=== PATIENT | female | born 1970 | race Caucasian/White ===

== ENCOUNTER 2023-02-19 17:35 | Emergency (ER) | payer BC, SELFPAY ==
[2023-02-19] VITALS (21 sets, daily range): BP systolic 135–168; BP diastolic 52–112; PULSE 69–95; RESP 16–20; TEMP 36.7; O2SAT 18–99; BMI 45.4
--- NOTE | 2023-02-19 18:26 | CRLHL7_ITS ---
For Patients: As a result of the Century Cures Act, medical imaging exams and procedure reports are released immediately into your electronic medical record. You may view this report before your referring provider. If you have questions, please contact your health care provider. INDICATION: Chest pain. TECHNIQUE: Chest 1 views. COMPARISON: None. FINDINGS: Decreased signal to noise ratio secondary to patient body habitus. Lungs: Normal lung volume. No consolidation. The tracheobronchial tree and hilar structures are unremarkable. Pleura: No pleural effusion or pneumothorax. Heart and Mediastinum: Normal heart size. The great vessels of the thorax are unremarkable. Bones: No acute displaced osseous process. IMPRESSION: No consolidation. Dictated by Keyur Suero MD @ 02/19/2023 7:35:57 PM (Electronically Signed)
[2023-02-19] MEDS: 0.9 % SODIUM CHLORIDE 1000 ml 1,000 ML IV (18:50)
[2023-02-19 19:10] LABS: Basophils Absolute Auto 0.04 K/uL (0.00-0.30); Basophils Percent Auto 0.4 % (0.0-3.0); Eosinophils Absolute Auto 0.17 K/uL (0.00-0.50); Eosinophils Percent Auto 1.7 % (0.0-7.0); Hematocrit 44.1 % (33.0-51.0); Hemoglobin* 14.3 gm/dL (12.0-16.0); Immature Granulocytes Abs Auto 0.01 K/uL (0.00-0.30); Immature Granulocytes Pct Auto 0.1 %; Lymphocytes Percent Auto 18.2 % (20-44); Mean Corpuscular HGB Conc 32 gm/dL (32-36); Mean Corpuscular Hemoglobin 28 pg (26-34); Mean Corpuscular Volume 87 fL (80-100); Neutrophils Percent Auto 74.6 % (42.0-72.0); Platelet Count* 355 K/uL (140-440); Red Blood Count 5.08 m/uL (4.00-5.20); White Blood Count* 10.11 K/uL (4.50-11.00)
[2023-02-19 19:19] LABS: Chloride* 104 mmol/L (96-114); Sodium* 138 mmol/L (135-149)
[2023-02-19 19:20] LABS: Potassium* 4.3 mmol/L (3.6-5.1)
[2023-02-19 19:21] LABS: Slide Review Reflex No
[2023-02-19 19:22] LABS: Creatinine* 0.7 mg/dL (0.5-1.5); Est. Creatinine Clearance* 73.51; Estimated Glomerular Filt Rate 103 ml/min
[2023-02-19 19:23] LABS: Blood Urea Nitrogen* 18 mg/dL (7-30); Calcium* 9.5 mg/dL (8.4-10.6); Carbon Dioxide* 28 mmol/L (20-32); Glucose* 128 mg/dL (60-115); Magnesium* 1.9 mg/dL (1.5-2.6)
[2023-02-19 19:25] LABS: C Reactive Protein* 2.2 mg/dL (0.5-1.0); D Dimer Quantitative* 0.57 ug/ml (0.00-0.50)
[2023-02-19 19:28] LABS: Ethanol* < 0.01 % (0.01-0.03)
[2023-02-19] MEDS: LORazepam 2 MG/ML inj 0.5 MG IVP (19:29)
[2023-02-19 19:33] LABS: NT Pro B Type NatriureticPept* 180 pg/mL
[2023-02-19 19:35] LABS: Troponin I* < 0.01 ng/mL (0.01-0.04)
--- NOTE | 2023-02-19 20:00 | ED_ITS ---
HPI - General Adult General Chief complaint: Chest Pain Stated complaint: Chest Pain Dizzy Short of Breath Time Seen by Provider: 02/19/23 17:55 History of Present Illness HPI narrative: 52-year-old woman presenting to the emergency department accompanied by her with concern of dizziness but in particular chest pain. Dizziness is alternately described sometimes as lightheadedness. She describes later some ringing in her ears. Has had ringing in her right ear or last 3 months and has been evaluated by ENT and planning follow-up. Has been noted to have a left stapes fracture per her report. She has been having some trouble though bumping into zuleta as the symptoms have been ongoing over the last 3 days. She has not had a fever. Does not have a headache. No visual changes really. Three 4 days ago started vomiting but now controlling with Zofran so no longer vomiting; still nauseated. Intermittently will get a burning sensation in her mid chest it seems to radiate up into both sides of her neck and her jaw. This can last 20-30 minutes. Not necessarily short of breath outside of that; discomfort is not pleuritic. She describes sometimes her heart fluttering as well. During exam I see some PVCs on monitor; asymptomatic in this regard at the with those. No abdominal pain. Has started taking clindamycin; antibiotic she had remaining from prior prescription. Much later she says, do think that this could be my shunt? I had similar symptoms to this when it gets infected. Apparently was obstructed and tangled somewhere in the abdomen at 1 point. Care has been at [facility]. Mentions a number times that had felt similar with a lupus flare in the past which was ultimately treated she said by primary care with Solu-Medrol and vancomycin for infection she said that started in her sinuses and went to her chest. In a bit of a difficult interview, later clarifying dizziness further it does seem to subside at rest and exacerbated then with any movements. Related Data Home Medications Medication Instructions Recorded Confirmed albuterol sulfate 2.5 mg/3 mL 1 mg inhalation Q4H PRN wheezing 02/19/23 02/19/23 (0.083 %) solution for nebulization cyclobenzaprine 10 mg tablet 10 mg PO 3XD PRN muscle spasm 02/19/23 02/19/23 glucagon 0.5 mg/0.1 mL 0.5 mg subcut PRN 02/19/23 02/19/23 subcutaneous auto-injector (Gvoke HypoPen 2-Pack) hydroxychloroquine 200 mg tablet 200 mg PO BID 02/19/23 02/19/23 insulin detemir U-100 100 unit/mL 10 unit subcut BID 02/19/23 02/19/23 subcutaneous solution (Levemir U-100 Insulin) levalbuterol tartrate 45 1 - 2 puff inhalation Q4H PRN 02/19/23 02/19/23 mcg/actuation aerosol inhaler wheezing lidocaine 5 % topical patch 1 patch topical 02/19/23 lisinopril 10 mg tablet 10 mg PO DAILY 02/19/23 02/19/23 lorazepam 1 mg tablet 1 mg PO 3XD PRN 02/19/23 02/19/23 metformin 1,000 mg tablet 1,000 mg PO BID 02/19/23 02/19/23 metoprolol succinate 50 mg 50 mg PO DAILY 02/19/23 02/19/23 tablet,extended release 24 hr ondansetron 4 mg disintegrating 8 mg PO Q8H PRN nausea/vomiting 02/19/23 02/19/23 tablet oxycodone 15 mg tablet 15 mg PO Q6H PRN pain 02/19/23 02/19/23 oxycodone myristate 27 mg capsule 27 mg PO 3XD 02/19/23 02/19/23 sprinkle extended release 12hr(DON'T CRUSH) (Xtampza ER) rosuvastatin 10 mg tablet 10 mg PO QPM 02/19/23 02/19/23 Previous Rx's Medication Instructions Recorded diazepam 5 mg tablet (Valium) 5 mg PO TID PRN dizziness or 02/19/23 vertigo #9 tabs Allergies Allergy/AdvReac Type Severity Reaction Status Date / Time Penicillins Allergy Anaphylaxis Verified 02/19/23 17:49 aspirin AdvReac Verified 02/19/23 17:49 Review of Systems 2 Status of ROS: Reports: 6 or more systems reviewed and unremarkable except as noted in History and below Exam Narrative: Exam Narrative: Appears anxious. Tremulous. Brow is furrowed in concern. Cranial nerves 2-12 look to be intact. Pupils are equal and briskly reactive. Head is atraumatic from any new injury. Neck is supple. Nystagmus with what appears to be left beating almost circular. Persistently dizzy with head movements particularly so to the left or looking to the left. I do attempt head impulse testing which she does tend to resist movement with active tension in her neck. Bilaterally though appears to be negative. Cover uncover results and no deviation. Left TM appears to be possibly perforated centrally. Noninflamed. Right TM is unremarkable. No focal weakness. At intact [id number]. Full strength throughout. No facial swelling erythema or tenderness. Oropharynx unremarkable. Lungs are clear. Heart with elevated rate in a regular rhythm though do see some PVCs intermittently on monitor. Initially when I mention t hese do not appear to be symptomatic though when Lashonda is watching further does report discomfort/fluttering to nurse's associated with PVC that she observes. Strong and equal radial pulses. Does have intact/ accurate [id number]. Observed to Ambulate unsteadily Const: Vital Signs, click to edit/add: Vital Signs - 24 hr 02/19/23 17:41 02/19/23 18:49 02/19/23 19:00 Temperature 98.0 F Pulse Rate 81 86 Pulse Rate [Pulse Oximeter] 95 Pulse Rate [orthos tatic lying Pulse Oximeter] Pulse Rate [orthos tatic sitting] Pulse Rate [orthos tatic standing] Respiratory Rate 20 Blood Pressure Blood Pressure [Ri ght Upper Arm] 159/112 H Blood Pressure [or thostatic lying Le ft Arm] Blood Pressure [or thostatic sitting] Blood Pressure [or thostatic standing ] Pulse Oximetry 95 97 Oxygen Delivery Me thod Room Air 02/19/23 19:02 02/19/23 19:15 02/19/23 18:26 Temperature Pulse Rate 86 80 Pulse Rate [Pulse Oximeter] Pulse Rate [orthos tatic lying Pulse Oximeter] 81 Pulse Rate [orthos tatic sitting] 79 Pulse Rate [orthos tatic standing] 82 Respiratory Rate Blood Pressure 137/52 L Blood Pressure [Ri ght Upper Arm] Blood Pressure [or thostatic lying Le ft Arm] 156/73 H Blood Pressure [or thostatic sitting] 168/82 H Blood Pressure [or thostatic standing ] 161/82 H Pulse Oximetry 97 98 Oxygen Delivery Me thod 02/19/23 19:29 02/19/23 19:30 02/19/23 19:31 Temperature Pulse Rate 82 79 79 Pulse Rate [Pulse Oximeter] Pulse Rate [orthos tatic lying Pulse Oximeter] Pulse Rate [orthos tatic sitting] Pulse Rate [orthos tatic standing] Respiratory Rate Blood Pressure 156/73 H 168/82 H Blood Pressure [Ri ght Upper Arm] Blood Pressure [or thostatic lying Le ft Arm] Blood Pressure [or thostatic sitting] Blood Pressure [or thostatic standing ] Pulse Oximetry 98 97 98 Oxygen Delivery Me thod 02/19/23 19:34 02/19/23 19:45 02/19/23 20:05 Temperature Pulse Rate 89 76 78 Pulse Rate [Pulse Oximeter] Pulse Rate [orthos tatic lying Pulse Oximeter] Pulse Rate [orthos tatic sitting] Pulse Rate [orthos tatic standing] Respiratory Rate Blood Pressure 161/82 H Blood Pressure [Ri ght Upper Arm] Blood Pressure [or thostatic lying Le ft Arm] Blood Pressure [or thostatic sitting] Blood Pressure [or thostatic standing ] Pulse Oximetry 95 96 97 Oxygen Delivery Wy thod 02/19/23 20:07 02/19/23 20:15 02/19/23 21:17 Temperature Pulse Rate 69 76 Pulse Rate [Pulse Oximeter] 78 Pulse Rate [orthos tatic lying Pulse Oximeter] Pulse Rate [orthos tatic sitting] Pulse Rate [orthos tatic standing] Respiratory Rate 16 Blood Pressure 138/80 Blood Pressure [Ri ght Upper Arm] 147/75 H Blood Pressure [or thostatic lying Le ft Arm] Blood Pressure [or thostatic sitting] Blood Pressure [or thostatic standing ] Pulse Oximetry 97 97 98 Oxygen Delivery Wy thod Room Air 02/19/23 21:35 02/19/23 21:35 02/19/23 21:36 Temperature Pulse Rate 72 74 Pulse Rate [Pulse Oximeter] 78 Pulse Rate [orthos tatic lying Pulse Oximeter] Pulse Rate [orthos tatic sitting] Pulse Rate [orthos tatic standing] Respiratory Rate 16 Blood Pressure 150/68 H Blood Pressure [Ri ght Upper Arm] 150/68 H Blood Pressure [or thostatic lying Le ft Arm] Blood Pressure [or thostatic sitting] Blood Pressure [or thostatic standing ] Pulse Oximetry 18 L 98 99 Oxygen Delivery Me thod Room Air 02/19/23 21:45 02/19/23 22:00 02/19/23 22:02 Temperature Pulse Rate 75 75 70 Pulse Rate [Pulse Oximeter] Pulse Rate [orthos tatic lying Pulse Oximeter] Pulse Rate [orthos tatic sitting] Pulse Rate [orthos tatic standing] Respiratory Rate Blood Pressure 135/65 Blood Pressure [Ri ght Upper Arm] Blood Pressure [or thostatic lying Le ft Arm] Blood Pressure [or thostatic sitting] Blood Pressure [or thostatic standing ] Pulse Oximetry 98 94 96 Oxygen Delivery Me thod 02/19/23 22:15 Temperature Pulse Rate 74 Pulse Rate [Pulse Oximeter] Pulse Rate [orthos tatic lying Pulse Oximeter] Pulse Rate [orthos tatic sitting] Pulse Rate [orthos tatic standing] Respiratory Rate Blood Pressure Blood Pressure [Ri ght Upper Arm] Blood Pressure [or thostatic lying Le ft Arm] Blood Pressure [or thostatic sitting] Blood Pressure [or thostatic standing ] Pulse Oximetry 95 Oxygen Delivery Me thod Documenting provider has reviewed patient's vital signs: yes Course Vital Signs Vital signs: Initial Vital Signs Temperature 98.0 F 02/19/23 17:41 Temperature Source Temporal Artery Scan 02/19/23 17:41 Pulse Rate 95 02/19/23 17:41 Respiratory Rate 20 02/19/23 17:41 Blood Pressure 159/112 H 02/19/23 17:41 Blood Pressure Mean 127 H 02/19/23 17:41 Blood Pressure Position Semi-Fowlers 02/19/23 17:41 Pulse Oximetry 95 02/19/23 17:41 Oxygen Delivery Method Room Air 02/19/23 17:41 Vital Signs Temperature 98.0 F 02/19/23 17:41 Pulse Rate 95 02/19/23 17:41 Respiratory Rate 20 02/19/23 17:41 Blood Pressure 159/112 H 02/19/23 17:41 Pulse Oximetry 95 02/19/23 17:41 Oxygen Delivery Method Room Air 02/19/23 17:41 Temperature 98.0 F 02/19/23 17:41 Pulse Rate 74 02/19/23 22:15 Respiratory Rate 16 02/19/23 21:35 Blood Pressure 135/65 02/19/23 22:02 Pulse Oximetry 95 02/19/23 22:15 Oxygen Delivery Method Room Air 02/19/23 21:35 Medical Decision Making MDM Narrative Medical decision making narrative: There are symptoms that might be cardiac. Central versus peripheral vertiginous symptoms are difficult to sort out with Ms. Sorenson. Doubt ischemic cardiac etiology but will check some labs in that regard. Chest x-ray to rule out pneumothorax, screening for vascular disruption, pneumonia. Screening D-dimer for potential indication of pulmonary embolus or vascular disruption. Will look for evidence of infection in particular with this history of shunt infection that they mention. And will be ordering a head CT is initial evaluation of shunt function. Chest x-ray by my read without pneumothorax or infiltrate and with normal cardiac silhouette Labs its air overall reassuring though with mildly elevated CRP. Head CT with normal appearing ventricles suggesting normal shunt function. No inflammatory changes. [employer]KLE [employer]ATCH [employer] shunt right side then noted by Radiology to be in place Given IV fluids and lorazepam did not affect symptoms very much. Did begin to complain of further nausea was given Zofran. Finally diagnosis by treatment of sorts, given 5 mg of diazepam IV. Essentially complete resolution of her symptoms at that point. I think this does suggest more of a peripheral vertigo. We discussed potential benefit dexamethasone, she decided to proceed with that. Given 10 mg. Might be helpful in further suppressing vertigo particularly if there is some postviral/inflammatory etiology. Had anticipated discussing this case with Neurology however given full resolution of symptoms now and that these symptoms 1st began about 3 days ago, am more reassured as well as recognizing limited intervention regardless at this point. She would like to have some Valium around if possible if the symptoms return she says. There may also it be some esophageal reflux like symptoms that might benefit from a PPI. See patient discharge plan Medical Records Medical records reviewed: Yes I reviewed the patient's medical records Lab Data Lab results reviewed: Yes I reviewed the patient's lab results Labs: Lab Results 02/19/23 02/19/23 02/19/23 Range/Units 18:27 18:45 19:09 WBC 10.11 (4.50-11.00) K/uL RBC 5.08 (4.00-5.20) m/uL Hgb 14.3 (12.0-16.0) gm/dL Hct 44.1 (33.0-51.0) % MCV 87 (80-100) fL MCH 28 (26-34) pg MCHC 32 (32-36) gm/dL RDW Coeff of Baldev 14.0 (11.5-15.5) % Plt Count 355 (140-440) K/uL Neut % (Auto) 74.6 H (42.0-72.0) % Lymph % (Auto) 18.2 L (20-44) % [place] % (Auto) 5.0 (0.0-11.0) % Eos % (Auto) 1.7 (0.0-7.0) % Baso % (Auto) 0.4 (0.0-3.0) % Neut # (Auto) 7.50 H (1.7-7.0) K/uL Lymph # (Auto) 1.80 (0.90-2.90) K/uL [place] # (Auto) 0.50 (0.00-0.90) K/UL Eos # (Auto) 0.17 (0.00-0.50) K/uL Baso # (Auto) 0.04 (0.00-0.30) K/uL D-Dimer Quant (PE/DVT) 0.57 H (0.00-0.50) ug/ml Sodium 138 (135-149) mmol/L Potassium 4.3 (3.6-5.1) mmol/L Chloride 104 (96-114) mmol/L Carbon Dioxide 28 (20-32) mmol/L BUN 18 (7-30) mg/dL Creatinine 0.7 (0.5-1.5) mg/dL Estimated Creat Clear 73.51 Estimated GFR 103 ml/min Glucose 128 H (60-115) mg/dL Calcium 9.5 (8.4-10.6) mg/dL Magnesium 1.9 (1.5-2.6) mg/dL Troponin I < 0.01 L (0.01-0.04) ng/mL C-Reactive Protein 2.2 H (0.5-1.0) mg/dL NT-Pro-B Natriuret Pep 180 pg/mL Ethyl Alcohol < 0.01 L (0.01-0.03) % SARS-CoV-2 (PCR) Negative SARS-CoV-2 (Negative) Influenza Type A (PCR) Negative PCR FLU A (Negative) Influenza Type B (PCR) Negative PCR FLU B (Negative) POC Troponin I 0.00 L (0.01-0.04) ng/ml ECG Data Attestation: I personally reviewed and interpreted this ECG as follows: (Normal sinus rhythm rate of 93. No ischemic changes. (I do observe some PVCs on monitor)) Discharge Plan Discharge Clinical Impression: Anxiety, Premature ventricular contraction, Vertigo Patient Disposition: Home w/ Parent or Adult Condition: Improved Instructions: Vertigo (ED) Additional Instructions: Focus on hydration. Take care in transitions; moving slowly. Be seen for severe headache, intractable vomiting, fever, new and focal weakness, altered mental status/unusual somnolence. Please follow-up on Friday as scheduled with your primary care provider to discuss this further. Might try a medication like omeprazole 20 mg 1-2 times daily over the next 2 weeks for these symptoms you are experiencing in your chest. It is not clear to me that these were associated with premature ventricular contractions. Prescriptions: New diazepam [Valium] 5 mg tablet 5 mg PO TID PRN (Reason: dizziness or vertigo) Qty: 9 0RF No Action albuterol sulfate 2.5 mg /3 mL (0.083 %) solution for nebulization 1 mg inhalation Q4H PRN (Reason: wheezing) cyclobenzaprine 10 mg tablet 10 mg PO 3XD PRN (Reason: muscle spasm) Gvoke HypoPen 2-Pack 0.5 mg/0.1 mL auto-injector 0.5 mg subcut PRN hydroxychloroquine 200 mg tablet 200 mg PO BID Levemir U-100 Insulin 100 unit/mL solution 10 unit subcut BID lisinopril 10 mg tablet 10 mg PO DAILY lidocaine 5 % adhesive patch,medicated 1 patch topical lorazepam 1 mg tablet 1 mg PO 3XD PRN levalbuterol tartrate 45 mcg/actuation HFA aerosol inhaler 1 - 2 puff INHALATION Q4H PRN (Reason: wheezing) metoprolol succinate 50 mg tablet extended release 24 hr 50 mg PO DAILY oxycodone 15 mg tablet 15 mg PO Q6H PRN (Reason: pain) metformin 1,000 mg tablet 1,000 mg PO BID ondansetron 4 mg tablet,disintegrating 8 mg PO Q8H PRN (Reason: nausea/vomiting) rosuvastatin 10 mg tablet 10 mg PO QPM Xtampza ER 27 mg cap,sprinkl,ER12hr(DONT CRUSH) 27 mg PO 3XD Follow Up/Referrals: Provider,Not a Local [Referring] - Stand Alone Forms: [facility] Info Instructions
[2023-02-19 20:04] LABS: PCR FLU A Negative PCR FLU A (Negative); PCR FLU B Negative PCR FLU B (Negative)
[2023-02-19 20:05] LABS: SARS PCR* Negative SARS-CoV-2 (Negative)
--- NOTE | 2023-02-19 20:13 | CRLHL7_ITS ---
For Patients: As a result of the Cures Act, medical imaging exams and procedure reports are released immediately into your electronic medical record. You may view this report before your referring provider. If you have questions, please contact your health care provider. INDICATION: History of [employer]ETING DATA [employer]IST shunt. Discoordination/dizzy. COMPARISON: CT head 11/15/2014. TECHNIQUE: CT of the head without IV contrast. Coronal and sagittal reconstructions. FINDINGS: No intracranial hemorrhage, mass effect, or evidence of acute infarct. No midline shift. No abnormal extra-axial fluid collections. Mild bilateral frontal lobe atrophy again noted. Right frontal ventriculoperitoneal shunt catheter with tip in stable position in the body of the left lateral ventricle. Ventricular caliber is within normal limits. Orbits and extraocular muscles are symmetric. Mild mucosal thickening in the right maxillary and right sphenoid sinuses. The visualized paranasal sinuses and mastoid air cells are otherwise clear. No acute fracture identified. Soft tissues are unremarkable. IMPRESSION: 1. No acute intracranial findings. 2. Right frontal MARKETING DATA [employer]IST shunt in stable position. No hydrocephalus. Please note that all CT scans at this facility use dose modulation, iterative reconstruction, and/or weight-based dosing when appropriate to reduce radiation dose to as low as reasonably achievable. Dictated by Barb Jones MD @ 02/19/2023 9:17:08 PM (Electronically Signed)
[2023-02-19] MEDS: ONDANSETRON 2 MG/ML inj 4 MG IVP (21:29)
[2023-02-19] MEDS: diazePAM 5 MG/ML inj IV (21:49)
--- NOTE | 2023-02-19 22:10 | ED.NURSE ---
Late entry: Patient requested BG to be checked at 0. She states she hasnt eaten [id number] and is concerned. BG 92. Patient updated. MD at bedside, updating patient.
--- NOTE | 2023-02-19 22:13 | ED.NURSE ---
Reassessed patient. She reports dizziness has improved. Ambulated without difficulty. MD updated.
[2023-02-19] MEDS: dexAMETHasone 10 MG/ML inj IVP (22:56)
== END 2023-02-19 23:07 | disposition home or self-care (01) ==
PROVIDERS: Emergency Provider Family Medicine; PCP Family Medicine
DX: F41.9 Anxiety disorder, unspecified (principal); I49.3 Ventricular premature depolarization; R42 Dizziness and giddiness
CPT/HCPCS: 36415; 70450; 71045; 80048; 82077; 83735; 83880; 84484; 85025; 85379; 86140; 87631; 93005; 94761; 96374; 96375; 99284; 99285; J1100; J2060; J2405; J3360; J7030

== ENCOUNTER 2023-12-26 15:38 | Emergency (ER) | payer BC, SELFPAY ==
[2023-12-26 16:02] VITALS: BP 163/82; PULSE 70; RESP 16; TEMP 36.2; O2SAT 99; BMI 44.6
--- NOTE | 2023-12-26 16:42 | US_ITS ---
Patient: YVES PAUL Facility:?[facility] Patient ID:?[id number] Site Patient ID:?[id number]. Site :?[id number] Study:?US-Abdomen RUQ-12/26/2023 6:07:19 PM Ordering Physician:?RAIZA REZA Final Report: INDICATION: Right upper quadrant abdomen pain. TECHNIQUE: Ultrasound abdomen limited. Sonographic images of the right upper quadrant were obtained using clark-scale and color Doppler images. COMPARISON: None. FINDINGS: Limited exam due to body habitus and bowel gas. Liver: Normal in size with coarse echotexture. No suspicious masses. No intrahepatic biliary dilatation. Gallbladder: No stones or sludge. Normal wall thickness. No pericholecystic fluid. Positive sonographic mayes`s sign. Common bile duct: 4 mm. Pancreas: Not well visualized. Right kidney: Normal in size. Normal echotexture and cortex. No suspicious masses, stones, or hydronephrosis. Vasculature: Proximal abdominal aorta and IVC are unremarkable. IMPRESSION: Positive sonographic Mayes`s sign. Otherwise, no acute findings to explain right upper quadrant pain. Dictated by Ni Curry MD @ 12/26/2023 6:24:49 PM Signed by:?Ni Curry MD @12/26/2023 6:24:49 PM (Electronic Signature)
[2023-12-26 17:04] LABS: Basophils Percent Auto 0.3 % (0.0-3.0); Eosinophils Percent Auto 38.7 % (0.0-7.0); Hematocrit 42.3 % (33.0-51.0); Hemoglobin* 13.5 gm/dL (12.0-16.0); Immature Granulocytes Pct Auto 0.3 %; Lymphocytes Percent Auto 15.4 % (20-44); Mean Corpuscular HGB Conc 32 gm/dL (32-36); Mean Corpuscular Hemoglobin 28 pg (26-34); Mean Corpuscular Volume 88 fL (80-100); Monocytes Percent Auto 3.5 % (0.0-11.0); Neutrophils Percent Auto 41.8 % (42.0-72.0); Platelet Count* 318 K/uL (140-440); RDW Coefficient of Variation % 14.2 % (11.5-15.5); Red Blood Count 4.81 m/uL (4.00-5.20); White Blood Count* 14.86 K/uL (4.50-11.00)
[2023-12-26 17:21] LABS: Albumin* 4.3 g/dL (3.3-5.0); Chloride* 104 mmol/L (96-114); Sodium* 138 mmol/L (135-149)
[2023-12-26 17:22] LABS: Potassium* 4.1 mmol/L (3.6-5.1)
[2023-12-26 17:23] LABS: Slide Review Reflex No
[2023-12-26 17:24] LABS: Alanine Aminotransferase* 22 U/L (4-35); Alkaline Phosphatase* 148 U/L (40-150); Anion Gap 10 mEq/L (7-15); Aspartate Amino Transferase* 26 U/L (12-35); Bilirubin Total* 0.2 mg/dL (0.1-1.5); Blood Urea Nitrogen* 12 mg/dL (7-30); Carbon Dioxide* 24 mmol/L (20-32); Creatinine* 0.6 mg/dL (0.5-1.5); Est. Creatinine Clearance* 84.78; Estimated Glomerular Filt Rate 107 ml/min; Glucose* 91 mg/dL (60-115); Lipase* 25 U/L (23-300); Total Protein* 7.7 g/dL (6.0-8.3)
[2023-12-26 17:25] LABS: Calcium* 9.4 mg/dL (8.4-10.6)
[2023-12-26] MEDS: METOCLOPRAMIDE HCL 5 MG/ML INJ 10 MG IVP ×2 (17:26→20:10)
[2023-12-26] MEDS: MORPHINE 4 MG/ML INJ IVP ×2 (17:27→20:10)
[2023-12-26 17:46] VITALS: BP 153/93; PULSE 70; O2SAT 96
--- NOTE | 2023-12-26 18:34 | CT_ITS ---
Patient: YVES PAUL Facility:?[facility] Patient ID:?[id number] Site Patient ID:?[id number]. Site :?[id number] Study:?CT-Abdomen/Pelvis W/ 120CC ISOVUE 370-12/26/2023 7:14:46 PM Ordering Physician:LIZ Final Report: INDICATION: Right upper quadrant pain. TECHNIQUE: CT abdomen and pelvis acquired with 120 cc Isovue 370 IV contrast. COMPARISON: Ultrasound, December 26, 2019 4th.. FINDINGS: Lower chest: Scattered atelectasis. Tiny hiatal hernia. Liver: Unremarkable. Normal in size and attenuation. No suspicious masses. Gallbladder and bile ducts: Mildly distended gallbladder with cholelithiasis but without CT evidence of acute cholecystitis. Pancreas: Fatty atrophy. No mass or inflammation. Spleen: Unremarkable. Normal in size. No masses. Adrenal glands: Unremarkable. No nodules. Kidneys: Unremarkable. No suspicious masses, stones, or hydronephrosis. GI tract: Mild colonic stool burden. No bowel obstruction. No sign of mass or inflammation. Vasculature: Abdominal aorta is normal in caliber. Mesenteric arteries are patent. Lymph nodes: No lymphadenopathy. Peritoneum/Abdominal Wall: Mild nonspecific mesenteric inflammation adjacent to multiple loops of small bowel in the left abdomen (series 2/image 71, series 4/image 79). No free air or significant free fluid. Right lower quadrant intraperitoneal catheter. No drainable fluid collections. Pelvis: Tiny 2.6 centimeter left ovarian cyst. Hysterectomy. Bones: Unremarkable for age. IMPRESSION: Mildly distended gallbladder with cholelithiasis but without definite CT evidence of acute cholecystitis. Recommend correlation with localized physical examination and laboratory values. Subtle mesenteric inflammation adjacent to multiple loops of small bowel in the left abdomen. Nonspecific but can be seen in enteritis. Otherwise, no acute intra-abdominal/pelvic abnormality. Please note that all CT scans at this facility use dose modulation, iterative reconstruction, and/or weight-based dosing when appropriate to reduce radiation dose to as low as reasonably achievable. Dictated by Darrius Fitzgerald MD @ 12/26/2023 7:24:58 PM ----- ADDENDUM ----- Addendum: Associated small bowel wall thickening in the left abdomen (series 2/image 82, series 4/image 54) which would support focal enteritis. Dictated by Darrius Fitzgerald MD @ Dec 26 2023 7:28PM Signed by:?Darrius Fitzgerald MD @12/26/2023 7:24:58 PM (Electronic Signature)
--- NOTE | 2023-12-26 18:48 | ED_ITS ---
HPI - Abdominal Pain General Chief Complaint: Abdominal Pain Stated Complaint: R side/abdominal pain, discolored stool Time Seen by Provider: 12/26/23 16:33 Source: patient Mode of arrival: ambulatory Limitations: no limitations History of Present Illness HPI narrative: Patient is a 53-year-old female presenting to the emergency department for right upper quadrant abdominal pain. She states symptoms have been going on for last 2 weeks. The pain has been getting worse and she has noted she is having beige appearing stools. She saw her primary care provider today and had slightly elevated alk phos so was sent to emergency department for workup. Patient states she has not been eating or drinking much because of the pain. Denies ever having symptoms like this before. Has had no previous abdominal surgeries. Denies fevers, chills, chest pain, shortness of breath, weakness, numbness, diarrhea, constipation. States the pain is 10/10 in the right upper quadrant and it did not radiate. No other concerns noted. Related Data Home Medications Medication Instructions Recorded Confirmed albuterol sulfate 2.5 mg/3 mL 1 mg inhalation Q4H PRN wheezing 02/19/23 04/03/23 (0.083 %) solution for nebulization cyclobenzaprine 10 mg tablet 10 mg PO 3XD PRN muscle spasm 02/19/23 04/03/23 glucagon 0.5 mg/0.1 mL 0.5 mg subcut PRN 02/19/23 04/03/23 subcutaneous auto-injector (Gvoke HypoPen 2-Pack) hydroxychloroquine 200 mg tablet 200 mg PO BID 02/19/23 04/03/23 insulin detemir U-100 100 unit/mL 10 unit subcut BID 02/19/23 04/03/23 subcutaneous solution (Levemir U-100 Insulin) levalbuterol tartrate 45 1 - 2 puff inhalation Q4H PRN 02/19/23 04/03/23 mcg/actuation aerosol inhaler wheezing lidocaine 5 % topical patch 1 patch topical 02/19/23 04/03/23 lisinopril 10 mg tablet 10 mg PO DAILY 02/19/23 04/03/23 lorazepam 1 mg tablet 1 mg PO 3XD PRN 02/19/23 04/03/23 metformin 1,000 mg tablet 1,000 mg PO BID 02/19/23 04/03/23 metoprolol succinate 50 mg 50 mg PO DAILY 02/19/23 04/03/23 tablet,extended release 24 hr ondansetron 4 mg disintegrating 8 mg PO Q8H PRN nausea/vomiting 02/19/23 0 04/03/23 tablet oxycodone 15 mg tablet 15 mg PO Q6H PRN pain 02/19/23 04/03/23 oxycodone myristate 27 mg capsule 27 mg PO 3XD 02/19/23 04/03/23 sprinkle extended release 12hr(DON'T CRUSH) (Xtampza ER) rosuvastatin 10 mg tablet 10 mg PO QPM 02/19/23 04/03/23 Previous Rx's Medication Instructions Recorded diazepam 5 mg tablet (Valium) 5 mg PO TID PRN dizziness or 02/19/23 vertigo #9 tabs Allergies Allergy/AdvReac Type Severity Reaction Status Date / Time Penicillins Allergy Anaphylaxis Verified 12/26/23 16:06 aspirin AdvReac Verified 12/26/23 16:06 Review of Systems Status of ROS Reports: 10 or more systems reviewed and unremarkable except as noted in History and below [facility] Social History Smoking Status: Never smoker Do you use any of these nicotine containing products: None Second hand tobacco smoke exposure: No How often do you have a drink containing alcohol: never How often do you have six or more drinks on one occasion: Never AUDIT-C Alcohol total score: 0 Non-prescribed substance use: denies use service: No Exam Narrative: Exam Narrative: Const: Well-nourished, Well-developed, in moderate distress Eyes: PERRL, no conjunctival injection, and symmetrical lids HENT: Atraumatic external nose and ears. Moist mucous membranes. Neck: Symmetric, trachea midline, No thyromegaly. CVS: RRR, No murmurs or gallops. Peripheral pulses 2+ and equal in all extremities RESP: Unlabored respiratory effort. Clear to auscultation bilaterally. GI: Right upper quadrant tenderness, Nondistended, No rebound or guarding. MSK:Extremities w/o deformity, Normal Active ROM Skin: Warm, Dry. No rashes or lesions. Neuro: Normal Muscle tone, No focal neurological deficits. Psych: Awake, Alert, & Oriented x3. Appropriate mood and affect. Const: Vital Signs, click to edit/add: Vital Signs - 24 hr 12/26/23 16:02 12/26/23 17:46 Temperature 97.1 F L Pulse Rate [Right] 70 70 Respiratory Rate 16 Blood Pressure [Ri ght Upper Arm] 163/82 H 153/93 H Pulse Oximetry 99 96 Oxygen Delivery Me thod Room Air Room Air Course Vital Signs Vital signs: Initial Vital Signs Temperature 97.1 F L 12/26/23 16:02 Temperature Source Temporal Artery Scan 12/26/23 16:02 Pulse Rate 70 12/26/23 16:02 Pulse Rhythm Regular 12/26/23 16:02 Pulse Strength 3+ Normal 12/26/23 16:02 Respiratory Rate 16 12/26/23 16:02 Blood Pressure 163/82 H 12/26/23 16:02 Blood Pressure Mean 109 H 12/26/23 16:02 Blood Pressure Position Sitting 12/26/23 16:02 Pulse Oximetry 99 12/26/23 16:02 Oxygen Delivery Method Room Air 12/26/23 16:02 Vital Signs Temperature 97.1 F L 12/26/23 16:02 Pulse Rate 70 12/26/23 16:02 Respiratory Rate 16 12/26/23 16:02 Blood Pressure 163/82 H 12/26/23 16:02 Pulse Oximetry 99 12/26/23 16:02 Oxygen Delivery Method Room Air 12/26/23 16:02 Temperature 97.1 F L 12/26/23 16:02 Pulse Rate 70 12/26/23 17:46 Respiratory Rate 16 12/26/23 16:02 Blood Pressure 153/93 H 12/26/23 17:46 Pulse Oximetry 96 12/26/23 17:46 Oxygen Delivery Method Room Air 12/26/23 17:46 Medications Administered Medications: Discontinued Medications Generic Name Dose Route Start Last Admin Trade Name Freq PRN Reason Stop Dose Admin Metoclopramide HCl 10 mg 12/26/23 16:42 12/26/23 17:26 Metoclopramide Hcl 5 Mg/Ml Inj IVP 12/26/23 16:43 10 mg ONCE ONE Administration Morphine Sulfate 4 mg 12/26/23 16:42 12/26/23 17:27 Morphine 4 Mg/Ml Inj IVP 12/26/23 16:43 4 mg ONCE ONE Administration MDM - Abdominal Pain MDM Narrative Medical decision making narrative: Patient is a 53 year old female presenting to emergency department for right upper quadrant abdominal pain. Symptoms been going on for over a week now which she says they are getting worse. She was told to come in by primary care provider. This time there is concerned for his liver gallbladder disease along with possible pancreatitis versus gastroenteritis. Will order right upper quadrant ultrasound, CBC, CMP, lipase, urinalysis. Morphine given for pain. She is not nauseated at this time Right upper quadrant ultrasound returned showing no abnormalities. She did have a positive sonographic Mayes sign. Her white count slightly elevated at 14. She is not on any steroids right now for her lupus. CMP shows no concerning abnormalities. LFTs within normal limits. Lipase is within normal limits. Due to continued pain and no obvious gallbladder disease seen we will order CT scan of the abdomen and pelvis it shows a mildly distended gallbladder with cholelithiasis but no CT evidence of cholecystitis. There is also a small bowel wall thickening in the left abdomen which would support focal enteritis. I spoke to the on-call surgeon Dr. Rodriguez about this. She reviewed everything and states that the patient would be he a complicated surgical patient but is agreeable to have her be admitted to the hospital and re-evaluation in the [facility] for possible cholecystectomy. She states the other option is to have the patient discharged home in follow-up the primary care provider. I spoke to the patient extensively about this and explained to her that we cannot find any clear source of what is causing her symptoms but can admit her for repeat exam in the morning by the surgeon. The patient did not seem happy with these results and states the fall were going to do is treat her pain and nausea overnight she can do that at home and can follow-up with her primary care provider. We given high dose of morphine and a dose of Reglan before discharge. She states the medicine helped immediately with her symptoms. She will be discharged home. Lab Data Labs: Lab Results 12/26/23 Range/Units 16:56 WBC 14.86 H (4.50-11.00) K/uL RBC 4.81 (4.00-5.20) m/uL Hgb 13.5 (12.0-16.0) gm/dL Hct 42.3 (33.0-51.0) % MCV 88 (80-100) fL MCH 28 (26-34) pg MCHC 32 (32-36) gm/dL RDW Coeff of Baldev 14.2 (11.5-15.5) % Plt Count 318 (140-440) K/uL Neut % (Auto) 41.8 L (42.0-72.0) % Lymph % (Auto) 15.4 L (20-44) % [place] % (Auto) 3.5 (0.0-11.0) % Eos % (Auto) 38.7 H (0.0-7.0) % Baso % (Auto) 0.3 (0.0-3.0) % Neut # (Auto) 6.20 (1.7-7.0) K/uL Lymph # (Auto) 2.30 (0.90-2.90) K/uL [place] # (Auto) 0.50 (0.00-0.90) K/UL Eos # (Auto) 5.80 H (0.00-0.50) K/uL Baso # (Auto) 0.00 (0.00-0.30) K/uL Abs Immat Gran (auto) 0.00 (0.00-0.30) K/uL Imm/Tot Granulo (auto) 0.3 % Sodium 138 (135-149) mmol/L Potassium 4.1 (3.6-5.1) mmol/L Chloride 104 (96-114) mmol/L Carbon Dioxide 24 (20-32) mmol/L Anion Gap 10 (7-15) mEq/L BUN 12 (7-30) mg/dL Creatinine 0.6 (0.5-1.5) mg/dL Estimated Creat Clear 84.78 Estimated GFR 107 ml/min Glucose 91 (60-115) mg/dL Calcium 9.4 (8.4-10.6) mg/dL Total Bilirubin 0.2 (0.1-1.5) mg/dL AST 26 (12-35) U/L ALT 22 (4-35) U/L Alkaline Phosphatase 148 (40-150) U/L Total Protein 7.7 (6.0-8.3) g/dL Albumin 4.3 (3.3-5.0) g/dL Lipase 25 (23-300) U/L Imaging Data US - abdomen: Radiologist's impression: Positive sonographic Mayes`s sign. Otherwise, no acute findings to explain right upper quadrant pain. Dictated by Ni Curry MD @ 12/26/2023 6:24:49 PM Discharge Plan Discharge Clinical Impression: Abdominal pain Qualifiers: Abdominal location: right upper quadrant Qualified Code(s): R10.11 - Right upper quadrant pain Patient Disposition: Home, Self-Care Condition: Stable Instructions: Abdominal Pain (ED) Additional Instructions: Take your home medications states he previously have. Return to emergency department for new or worsening symptoms. Make she follow-up with the primary care provider about your lab work and imaging. Prescriptions: No Action albuterol sulfate 2.5 mg /3 mL (0.083 %) solution for nebulization 1 mg inhalation Q4H PRN (Reason: wheezing) cyclobenzaprine 10 mg tablet 10 mg PO 3XD PRN (Reason: muscle spasm) Gvoke HypoPen 2-Pack 0.5 mg/0.1 mL auto-injector 0.5 mg subcut PRN hydroxychloroquine 200 mg tablet 200 mg PO BID Levemir U-100 Insulin 100 unit/mL solution 10 unit subcut BID lisinopril 10 mg tablet 10 mg PO DAILY lidocaine 5 % adhesive patch,medicated 1 patch topical lorazepam 1 mg tablet 1 mg PO 3XD PRN levalbuterol tartrate 45 mcg/actuation HFA aerosol inhaler 1 - 2 puff INHALATION Q4H PRN (Reason: wheezing) metoprolol succinate 50 mg tablet extended release 24 hr 50 mg PO DAILY oxycodone 15 mg tablet 15 mg PO Q6H PRN (Reason: pain) metformin 1,000 mg tablet 1,000 mg PO BID ondansetron 4 mg tablet,disintegrating 8 mg PO Q8H PRN (Reason: nausea/vomiting) rosuvastatin 10 mg tablet 10 mg PO QPM Xtampza ER 27 mg cap,sprinkl,ER12hr(DONT CRUSH) 27 mg PO 3XD diazepam [Valium] 5 mg tablet 5 mg PO TID PRN (Reason: dizziness or vertigo) Qty: 9 0RF Follow Up/Referrals: Armando Cedeño MD [Primary Care Provider] - Stand Alone [facility]: [facility] Info Instructions
== END 2023-12-26 20:17 | disposition home or self-care (01) ==
PROVIDERS: Emergency Provider Student in an Organized Health Care Education/Training Program; PCP Family Medicine
DX: R10.11 Right upper quadrant pain (principal)
CPT/HCPCS: 36415; 74177; 76705; 80053; 81001; 83690; 85025; 96374; 96375; 96376; 99284; 99285; J2270; J2765; Q9967